=== PATIENT | female | born 1955 | race Caucasian/White ===

== ENCOUNTER 2020-07-04 08:46 | Emergency (ER) | payer OTHER ==
[~2020-07-04] VITALS: Ht 172.7 cm; Wt 74.8 kg
[2020-07-04] MEDS ORDERED: NORVASC10 MG PO (09:04)
[2020-07-04] MEDS ORDERED: ZESTRIL40 MG PO (09:04)
[2020-07-04] MEDS ORDERED: CALCIUM500 MG PO (09:05)
[2020-07-04 09:07] LABS: URINE BILIRUBIN NEGATIVE (Negative); URINE BLOOD 1+ (Negative); URINE CLARITY CLEAR; URINE COLOR YELLOW; URINE GLUCOSE-RANDOM* NEGATIVE (Negative); URINE KETONES NEGATIVE (Negative); URINE LEUKOCYTES-REFLEX NEGATIVE (Negative); URINE NITRITE-REFLEX NEGATIVE (Negative); URINE PROTEIN (DIPSTICK) 3+ (Negative); URINE SPECIFIC GRAVITY >= 1.030 (1.005-1.035); URINE UROBILINOGEN 0.2 E.U./dl (0.2-1.0)
[2020-07-04 09:23] LABS: CRYSTALS None Seen /LPF (None Seen); MUCUS 0-3 Light strn/LPF (None Seen); SQUAMOUS 0-3 Few /LPF (0-3)
[2020-07-04 09:27] LABS: URINE RBC 0-2 Rare /HPF (0-2); URINE WBC-REFLEX 0-5 Rare /HPF (0-5)
[2020-07-04 09:28] LABS: BACTERIA-REFLEX 1-9 Few /HPF (None Seen)
[2020-07-04 09:29] LABS: FINE GRANULAR CASTS 0-3 Few /LPF (None Seen); HYALINE CASTS 0-3 Few /LPF (None Seen)
[2020-07-04 09:50] LABS: ABSOLUTE NEUTROPHILS 7.2 thou/uL (1.4-8.2); BASOPHILS 0.5 % (0.0-2.0); EOSINOPHILS 0.4 % (0.0-3.0); HEMATOCRIT 37.2 % (37.0-47.0); HEMOGLOBIN 12.4 gm/dL (12.0-15.0); LYMPHOCYTES 15.6 % (24.0-44.0); MCH 29.1 pg (26.0-34.0); MCHC 33.3 g/dL (28.0-37.0); MCV 87.2 fL (80.0-100.0); MONOCYTES 7.5 % (1.0-8.0); PLATELET COUNT 417 thou/uL (150-400); RBC 4.27 mil/uL (4.20-5.00); RDW 14.6 % (10.5-14.5); WBC 9.5 thou/uL (4.0-11.0)
[2020-07-04 09:52] LABS: CALCIUM 9.6 mg/dL (8.5-10.1); CREATININE 2.7 mg/dL (0.6-1.0); POTASSIUM 4.2 mmol/L (3.5-5.1)
[2020-07-04 09:59] LABS: ALBUMIN 3.5 g/dL (3.4-5.0); TOTAL BILIRUBIN 0.3 mg/dL (0.2-1.0)
[2020-07-04 12:15] VITALS: BP 172/90
== END 2020-07-04 12:15 | disposition home or self-care (01) ==
LOC: ER 08:46
PROVIDERS: Emergency Medicine
DX: N28.9 Disorder of kidney and ureter, unspecified (principal); E86.0 Dehydration; I12.9 Hypertensive chronic kidney disease with stage 1 through stage 4 chronic kidney disease, or unspecified chronic kidney disease; N18.30 Chronic kidney disease, stage 3 unspecified; Z79.899 Other long term (current) drug therapy

== ENCOUNTER 2020-07-14 22:33 | Observation (INO) | payer OTHER ==
[~2020-07-14] VITALS: Ht 172.7 cm; Wt 81.2 kg
[2020-07-14 22:33] VITALS: BP 131/74
[~2020-07-14 22:33] MED LIST: CALCIUM500 MG PO; NORVASC10 MG PO; ZESTRIL40 MG PO
[2020-07-14 23:26] LABS: ABSOLUTE NEUTROPHILS 6.6 thou/uL (1.4-8.2); BASOPHILS 0.4 % (0.0-2.0); EOSINOPHILS 0.9 % (0.0-3.0); HEMATOCRIT 30.4 % (37.0-47.0); HEMOGLOBIN 10.2 gm/dL (12.0-15.0); LYMPHOCYTES 16.3 % (24.0-44.0); MCH 29.4 pg (26.0-34.0); MCHC 33.5 g/dL (28.0-37.0); MCV 87.8 fL (80.0-100.0); MONOCYTES 10.3 % (1.0-8.0); PLATELET COUNT 333 thou/uL (150-400); POLYS 72.1 % (36.0-66.0); RBC 3.46 mil/uL (4.20-5.00); RDW 14.3 % (10.5-14.5); WBC 9.1 thou/uL (4.0-11.0)
[2020-07-14 23:30] LABS: ANION GAP 10 mmol/L (7-16); BUN 42 mg/dL (7-18); CALCIUM 8.5 mg/dL (8.5-10.1); CHLORIDE 102 mmol/L (98-107); CO2 23 mmol/L (21-32); CREATININE 2.6 mg/dL (0.6-1.0); GLUCOSE 111 mg/dL (74-106); SODIUM 135 mmol/L (136-145)
[2020-07-14 23:40] LABS: ALBUMIN 2.9 g/dL (3.4-5.0); SGOT 23 U/L (15-37); SGPT 21 U/L (30-65); TOTAL BILIRUBIN 0.2 mg/dL (0.2-1.0); TOTAL PROTEIN 5.8 g/dL (6.4-8.2); TROPONIN-I <0.06 ng/mL (<0.06)
[2020-07-15] VITALS (7 sets, daily range): BP systolic 128–141; BP diastolic 78–88
[2020-07-15] MEDS ORDERED: LISINOPRIL20 MG PO (01:30)
[2020-07-15] MEDS ORDERED: HYDROCHLOROTH12.5 M2 PO (01:32)
[2020-07-15] MEDS ORDERED: DESYREL150 MG PO (01:35)
[2020-07-15] MEDS ORDERED: RISPERDAL2 MG PO (01:36)
[2020-07-15] MEDS ORDERED: SUPER THERAVIT1 EACH PO (01:38)
[2020-07-15] MEDS ORDERED: CALCIUM 600 +1 EA16 PO (01:39)
[2020-07-15] MEDS ORDERED: B12 ACTIVE1000 MCG PO (01:40)
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
[2020-07-15 05:38] LABS: ANION GAP 8 mmol/L (7-16); BUN 41 mg/dL (7-18); CALCIUM 8.6 mg/dL (8.5-10.1); CHLORIDE 105 mmol/L (98-107); CO2 26 mmol/L (21-32); CREATININE 2.5 mg/dL (0.6-1.0); GLUCOSE 101 mg/dL (74-106); POTASSIUM 4.4 mmol/L (3.5-5.1); SODIUM 139 mmol/L (136-145); TROPONIN-I <0.06 ng/mL (<0.06)
--- NOTE | 2020-07-15 07:25 | EKG ---
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: briana ramos : 1955 Requested By: Cinthia Brown Order Number: [id number] MD: Toribio Quinteros Measurements Intervals [place] Rate: 89 P: -11 CO: 125 QRS: 13 QRSD: 80 T: 4 QT: 341 QTc: 415 Interpretive Statements Sinus rhythm Abnormal R-wave progression, early transition No previous ECG available for comparison Electronically Signed On 07-15-2020 7:25:44 CDT by Toribio Quinteros [email or web address] <ELECTRONICALLY SIGNED> By: Toribio Quinteros MD, [facility] 07/15/20 0725 224 [id number] Toribio Quinteros MD, FACC /EPI
[2020-07-15 08:50] LABS: CHOLESTEROL 217 mg/dL (<200); HDL CHOLESTEROL 89 mg/dL (>40); LDL CHOLESTEROL 105 mg/dL (<100); TC:HDL 2.4 Ratio (Not establshd); TRIGLYCERIDE 116 mg/dL (<150); VLDL 23 mg/dL (<40)
[2020-07-15 08:53] LABS: SERUM ASSESSMENT Clear
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
--- NOTE | 2020-07-15 15:36 | NUR ---
ASSUMED CARE OF PT AT SHIFT CHANGE. ASSESMENT CHARTED. MEDS GIVEN PER JUN. STRESS TEST AND ECHO COMPLETE. NO C/O PAIN OR DISTRESS. DISCHARGE ORDERS AND INSTRUCTIONS COMPLETE. IV AND TELE DC'D. PT WALKED TO ER ENTRANCE BY NURSING STAFF.
== END 2020-07-15 15:15 | disposition home or self-care (01) ==
LOC: ER 22:33 → EROBS 07-15 00:09 → 2N 07-15 00:48
PROVIDERS: Emergency Medicine; Nurse Practitioner; ADMIT Hospitalist; ATTEND Hospitalist
DX: R07.89 Other chest pain (principal); I12.9 Hypertensive chronic kidney disease with stage 1 through stage 4 chronic kidney disease, or unspecified chronic kidney disease; N18.30 Chronic kidney disease, stage 3 unspecified; E78.5 Hyperlipidemia, unspecified; F41.9 Anxiety disorder, unspecified; Z91.410 Personal history of adult physical and sexual abuse; Z79.82 Long term (current) use of aspirin; Z79.899 Other long term (current) drug therapy